=== PATIENT | male | born 1940 | race Caucasian/White ===

== ENCOUNTER → 2016-05-28 | Outpatient (CLI) | payer MEDICARE, OTHER ==
[~2016-05-28] MED LIST: FURO-125 PO; GABA600T2 PO
--- OUTSIDE RECORDS SUMMARY | 2016-05-28 09:43 | XMS REPORT | Continuity of Care Document ---
Author Author Interface Organization Interface Address Unknown Phone Unavailable Problems Problem Status Onset Date Classification Date Reported Comments Source History of polyp of colon (situation) Active Problem 09/2015 [facility]. History of radiation therapy (situation) Active Problem 07/15/2015 [facility] Hypertensive disorder, systemic arterial (disorder) Active Problem 07/15/2015 [facility]. Dyspnea (finding) Active Problem 07/15/2015 [facility]. Neoplasm of lung (disorder) Active Problem 07/15/2015 [facility] History of polyp of colon (situation) Active Problem [facility]. History of radiation therapy (situation) Active Problem 05/26/2016 [facility]. Hypertensive disorder, systemic arterial (disorder) Active Problem 05/26/2016 [facility]. Dyspnea (finding) Active Problem 05/26/2016 [facility]. Neoplasm of lung (disorder) Active Problem 05/26/2016 [facility] History of polyp of colon (situation) Active Problem [facility]. History of radiation therapy (situation) Active Problem 08/09/2014 [facility]. Hypertensive disorder, systemic arterial (disorder) Active Problem 08/09/2014 [facility]. Dyspnea (finding) Active Problem 08/09/2014 [facility] Neoplasm of lung (disorder) Active Problem 08/09/2014 [facility] History of polyp of colon (situation) Active Problem 06/2013 [facility] History of radiation therapy (situation) Active Problem 09/10/2013 [facility] Hypertensive disorder, systemic arterial (disorder) Active Problem 09/10/2013 [facility] Dyspnea (finding) Active Problem 09/10/2013 [facility] Neoplasm of lung (disorder) Active Problem 09/10/2013 [facility] Dyspnea (finding) 2015 Diagnosis 07/15/2015 [facility]. Neoplasm of lung (disorder) 07/11/2015 Diagnosis 2015 [facility] Immunization status (finding) 03/08/2016 Diagnosis 2015 [facility]. Candidiasis of mouth (disorder) 03/08/2016 Diagnosis 05/2015 [facility]. Otalgia (disorder) 2015 Diagnosis 03/12/2016 [facility] Other dyspnea and respiratory abnormality 11/15/2013 Diagnosis 11/19/2013 [facility]. Personal history of irradiation, presenting hazards to health 11/15/2013 Diagnosis 11/19/2013 [facility]. 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 statins Assertion Muscle pain (finding) Drug allergy [facility]. rofecoxib Assertion Swelling Drug allergy [facility]. celecoxib Assertion Swelling Drug allergy [facility] statins Assertion Muscle pain (finding) Drug allergy [facility]. rofecoxib Assertion Swelling Drug allergy [facility] celecoxib Assertion Swelling Drug allergy [facility] statins Assertion Muscle pain (finding) Drug allergy [facility] rofecoxib Assertion Swelling Drug allergy [facility] celecoxib drug allergy Swelling Allergy Active [facility] statins drug allergy Muscle pain (finding) Allergy Active [facility] rofecoxib drug allergy Swelling Allergy Active [facility] celecoxib Assertion Swelling Drug allergy [facility] statins Assertion Muscle pain (finding) Drug allergy [facility] rofecoxib Assertion Swelling Drug allergy [facility] Immunizations Immunization Date Given Site Status Last Updated Comments Source No data available for this section No data available for this section [facility]. influenza virus vaccine 03/08/2016 Left Deltoid influenza virus vaccine [facility] [employer] No data available for this section No data available for this section [facility] No data available for this section No data available for this section [facility] Results Order Name Results Value Reference Range Date Interpretation Comments Source Vital Signs Vital Sign Value Date Comments Source Encounters Location Location Details Encounter Type Encounter Number Reason For Visit Attending Provider ADM Date DC Date Status Source [facility] CD:[id number] Clinic ( Outpatient) [id number] Doug Kurtis 11/15/2013 Active [employer] [facility] CD:[id number] Clinic ( Outpatient) [id number] George Mcmahan 07/22/2013 Active [employer] [facility] Clinic [id number] [facility] 08/05/2014 08/06/2014 [employer] [employer] [id number] [facility] 07/11/2015 07/12/2015 [employer] Cancel/No Show [id number] 08/05/2014 08/05/2014 [facility] [id number] Tyrone Fernandodonell 03/08/2016 03/09/2016 [email or web address] [id number] Doug Kurtis 08/05/2014 08/06/2014 [employer] [id number] 07/05/2014 06/13/2014 [employer] [id number] Doug Kurtis 07/05/2014 06/13/2014 [employer] [facility] Cancel/No Show [id number] Doug Kurtis 07/08/2014 07/06/2014 [employer] [id number] Doug Kurtis 11/15/2013 11/16/2013 [employer] [id number] Doug Kurtis 11/22/2013 09/06/2013 [facility] [employer] [facility] Cancel/No Show [id number] 07/08/2014 07/06/2014 [facility] CD:[id number] Clinic ( Outpatient) [id number] Tyrone Camp 03/08/2016 Active [employer] [facility] CD:[id number] Outpatient [id number] Doug Kurtis 08/05/2014 08/05/2014 Active [employer] [facility]PM CD:[id number] Clinic ( Outpatient) [id number] Doug Kurtis 07/11/2015 Active [employer] [facility] CD:[id number] Clinic ( Outpatient) [id number] Doug Kurtis 07/10/2015 Active [employer] [facility] CD:[id number] Clinic ( Outpatient) [id number] 08/05/2014 [facility] [employer] [facility] CD:[id number] Clinic ( Outpatient) [id number] Doug Kurtis 08/05/2014 Active [employer] [facility] CD:[id number] Clinic ( Outpatient) [id number] Doug Kurtis 07/08/2014 Active [employer] [facility] CD:[id number] Clinic ( Outpatient) [id number] 07/08/2014 Active [employer] [facility] CD:[id number] Clinic ( Outpatient) [id number] 07/05/2014 [facility] [employer] [facility] CD:[id number] Clinic ( Outpatient) [id number] 07/04/2014 [facility] [employer] [facility] CD:[id number] Clinic ( Outpatient) [id number] Doug Kurtis 07/05/2014 Active [employer] [facility] CD:[id number] Clinic ( Outpatient) [id number] Doug Kurtis 07/04/2014 Active [employer] [facility] CD:[id number] Clinic ( Outpatient) [id number] Doug Kurtis 11/22/2013 Active [employer] [facility] CD:[id number] Clinic ( Outpatient) [id number] Tomás Azevedo 05/29/2016 Active [employer] [facility] CD:[id number] Clinic ( Outpatient) [id number] [facility] 2016 Active [employer] [facility] [id number] [facility] 05/22/2016 05/23/2016 [facility] Procedures Procedure Code Date Perfomer Comments Source No data available for this section [facility].
--- NOTE | 2016-05-28 13:35 | Diagnostic Imaging Report ---
EXAMINATION: PET-CT TECHNIQUE: Serum glucose level at the time of the study is: 92 mg/dL. 12.9 mCi of FDG was administered intravenously followed by obtaining PET images with corresponding noncontrast CT scan images. The CT scan was performed for anatomic correlation and attenuation correction and was not performed according to the diagnostic protocol of the areas covered. The scan was performed from the head to mid thighs. INDICATION: Non-small cell lung cancer. COMPARISON: 04/24/2016. FINDINGS: There is symmetric increased FDG uptake in the brain. There is nonspecific focal area of increased FDG uptake seen near the left pterygoid bone, could be muscle activity from the origin of the medial pterygoid muscle with no definitive soft tissue fullness or mass identified on the localizer correlating CT scan. Some increased FDG uptake projecting around the nose and the left eye is also not associated with a definitive mass and is presumably physiologic. Small focus of mild increased FDG uptake in the proximal esophagus sphincter region is not associated with a definitive mass. There is prominent area of increased FDG uptake with maximum SUV of 8.5 in left lung area of consolidation inferiorly within the left lower lobe and in the more central aspect adjacent to the ascending thoracic aorta with cavitation seen. This could be related to tumor recurrence or possibly infectious etiology. No discrete mass is identified on the localizer CT scan. Described abnormalities in the right lung on CT from 04/24/2016, demonstrate no associated significant FDG uptake and could be inflammatory etiology. In the abdomen and pelvis, there is urinary tract expected activity seen. No hypermetabolic mass is identified. IMPRESSION: There are FDG-avid areas within the inferior and central aspects of the left lower lobe consolidation with associated central area of cavitation. No discrete mass is identified. This could be related to an infection or infiltrative tumor. Based on the central extension of this abnormality, consider bronchoscopic evaluation. Dictated by: Dictated on workstation # [id number]
== END ==
LOC: RAD 09:38
PROVIDERS: ATTEND Internal Medicine Hematology & Oncology
DX: C34.82 Malignant neoplasm of overlapping sites of left bronchus and lung (principal)

== ENCOUNTER → 2016-06-18 | Outpatient (CLI) | payer MEDICARE, OTHER ==
--- OUTSIDE RECORDS SUMMARY | 2016-06-18 10:38 | XMS REPORT | Continuity of Care Document ---
Author Author Interface Organization Interface Address Unknown Phone Unavailable Problems Problem Status Onset Date Classification Date Reported Comments Source History of polyp of colon (situation) Active Problem 09/2015 [employer] History of radiation therapy (situation) Active Problem 07/15/2015 [facility]. Hypertensive disorder, systemic arterial (disorder) Active Problem 07/15/2015 [facility]. Dyspnea (finding) Active Problem 07/15/2015 [facility]. Neoplasm of lung (disorder) Active Problem 07/15/2015 [facility]. History of polyp of colon (situation) Active Problem 09/2016 [employer]. History of radiation therapy (situation) Active Problem 06/16/2016 [facility]. Hypertensive disorder, systemic arterial (disorder) Active Problem 06/16/2016 [facility]. Dyspnea (finding) Active Problem 06/16/2016 [facility]. Neoplasm of lung (disorder) Active Problem 06/16/2016 [facility]. History of polyp of colon (situation) Active Problem [employer] History of radiation therapy (situation) Active Problem 06/09/2016 [facility]. Hypertensive disorder, systemic arterial (disorder) Active Problem 06/09/2016 [facility]. Dyspnea (finding) Active Problem 06/09/2016 [facility]. Neoplasm of lung (disorder) Active Problem 06/09/2016 [facility]. History of polyp of colon (situation) Active Problem 06/2013 [facility] History of radiation therapy (situation) Active Problem 09/10/2013 [facility] Hypertensive disorder, systemic arterial (disorder) Active Problem 09/10/2013 [facility] Dyspnea (finding) Active Problem 09/10/2013 [facility] Neoplasm of lung (disorder) Active Problem 09/10/2013 [facility] Dyspnea (finding) 2015 Diagnosis 07/15/2015 [facility]. Neoplasm of lung (disorder) 07/11/2015 Diagnosis 2015 [facility]. Immunization status (finding) 03/08/2016 Diagnosis 2015 [facility]. Candidiasis of mouth (disorder) 03/08/2016 Diagnosis 05/2015 [employer] Otalgia (disorder) 2015 Diagnosis 03/12/2016 [facility]. Other dyspnea and respiratory abnormality 11/15/2013 Diagnosis 11/19/2013 [facility]. Personal history of irradiation, presenting hazards to health 11/15/2013 Diagnosis 11/19/2013 [facility]. 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 Neoplasm of lung (disorder) 06/04/2016 Diagnosis 2016 [facility]. Non-small cell lung cancer (disorder) 06/12/2016 Diagnosis 06/16/2016 [facility]. Dyspnea (finding) 2016 Diagnosis 06/16/2016 [facility]. Medications Medication Details Route Status Patient Instructions Ordering Provider Order Date Source No Known Medications No known medications Active [facility]. Allergies, Adverse Reactions, Alerts Substance Category Reaction Severity Reaction type Status Date Reported Comments Source celecoxib Assertion Swelling Drug allergy [facility]. statins Assertion Muscle pain (finding) Drug allergy [facility]. rofecoxib Assertion Swelling Drug allergy [facility]. celecoxib Assertion Swelling Drug allergy [facility]. statins Assertion Muscle pain (finding) Drug allergy [facility]. rofecoxib Assertion Swelling Drug allergy [facility]. celecoxib Assertion Swelling Drug allergy [facility]. statins Assertion Muscle pain (finding) Drug allergy [facility]. rofecoxib Assertion Swelling Drug allergy [facility]. celecoxib drug allergy Swelling Allergy Active [facility] [...] section No data available for this section [facility]. influenza virus vaccine 03/08/2016 Left Deltoid influenza virus vaccine [facility]. No data available for this section No data available for this section [employer] No data available for this section No data available for this section [facility] influenza virus vaccine 03/08/2016 Left Deltoid influenza virus [facility]. Results Order Name Results Value Reference Range Date Interpretation Comments Source Vital Signs Vital Sign Value Date Comments Source Encounters Location Location Details Encounter Type Encounter Number Reason For Visit Attending Provider ADM Date DC Date Status Source [facility]PM CD:[id number] Clinic ( Outpatient) [id number] Doug Kurtis 11/15/2013 Active Status Overload [facility] CD:[id number] Clinic ( Outpatient) [id number] George Mcmahan 07/22/2013 Active Status Overload [facility] Clinic [id number] Doug Hull 08/05/2014 08/06/2014 [facility] [id number] Doug Hull 07/11/2015 07/12/2015 [employer] [facility] Cancel/No Show [id number] 08/05/2014 08/05/2014 [employer] [id number] Tyrone Fernandodonell 03/08/2016 03/09/2016 [facility] [id number] Doug Hull 08/05/2014 08/06/2014 [facility] Clinic [id number] 07/05/2014 06/13/2014 [facility] [id number] Doug Hull 07/05/2014 06/13/2014 [employer] [employer] [facility] Cancel/No Show [id number] Doug Kurtis 07/08/2014 07/06/2014 [facility]. [facility] [id number] Doug Kurtis 11/15/2013 11/16/2013 [facility]. [facility] [id number] Doug Kurtis 11/22/2013 09/06/2013 [facility] Cancel/No Show [id number] 07/08/2014 07/06/2014 [facility]. [facility] CD:[id number] Clinic ( Outpatient) [id number] Tyrone Ibanezisma 03/08/2016 Active Status Overload [facility] CD:[id number] Outpatient [id number] Doug Kurtis 08/05/2014 08/05/2014 Active Status Overload [facility] CD:[id number] Clinic ( Outpatient) [id number] Doug Kurtis 07/11/2015 Active Status Overload [facility] CD:[id number] Clinic ( Outpatient) [id number] Doug Kurtis 07/10/2015 Active Status Overload [facility] CD:[id number] Clinic ( Outpatient) [id number] 08/05/2014 Active [employer] [facility] CD:[id number] Clinic ( Outpatient) [id number] Doug Kurtis 08/05/2014 Active Status Overload [facility] CD:[id number] Clinic ( Outpatient) [id number] Doug Kurtis 07/08/2014 Active Status Overload [facility] CD:[id number] Clinic ( Outpatient) [id number] 07/08/2014 Active [employer] [facility] CD:[id number] Clinic ( Outpatient) [id number] 07/05/2014 Active [employer] [facility] CD:[id number] Clinic ( Outpatient) [id number] 07/04/2014 Active [employer] [facility] CD:[id number] Clinic ( Outpatient) [id number] Doug Kurtis 07/05/2014 Active Status Overload [facility] CD:[id number] Clinic ( Outpatient) [id number] Doug Kurtis 07/04/2014 Active Status Overload [facility] CD:[id number] Clinic ( Outpatient) [id number] [employer] 11/22/2013 [place], [facility] CD:[id number] Clinic ( Outpatient) [id number] Tomás Roberto Carlos 05/29/2016 Active [employer] [facility] CD:[id number] Clinic ( Outpatient) [id number] [facility] 2016 [facility] [id number] [facility] 05/22/2016 05/23/2016 [facility]. [facility] CD:[id number] Clinic ( Outpatient) [id number] Tomás Roberto Carlos 06/05/2016 Active [facility] CD:[id number] Day Surgery [id number] George Mcmahan 06/05/2016 06/05/2016 Active [facility] CD:[id number] Outpatient [id number] George Mcmahan 06/04/2016 Active [facility] [facility] CD:[id number] Clinic ( Outpatient) [id number] Tomás Roberto Carlos 06/12/2016 Active [employer] [facility] [id number] Tomás Roberto Carlos 06/05/2016 06/03/2016 [employer] [facility] Pavilion [id number] George Mcmahan 06/04/2016 06/06/2016 [employer] [facility]. [facility]. Outpatient Day Surgery [id number] George Mcmahan 06/05/2016 06/06/2016 [facility]. [facility] [id number] Tomás Juneau 06/12/2016 06/13/2016 [facility]. Procedures Procedure Code Date Perfomer Comments Source No data available for this section [facility]. bronchoscopy 06/05/2016 [facility]. Endobronchial Ultrasound System Bronchoscoy With Transbronchial Needle Biopsies 06/05/2016 [facility].
== END ==
LOC: FS 10:31
PROVIDERS: ATTEND Internal Medicine Hematology & Oncology
DX: C34.32 Malignant neoplasm of lower lobe, left bronchus or lung (principal); G62.9 Polyneuropathy, unspecified; Z92.21 Personal history of antineoplastic chemotherapy; Z92.3 Personal history of irradiation; Z79.899 Other long term (current) drug therapy
CPT/HCPCS: 99213

== ENCOUNTER → 2016-06-20 | Day surgery (SDC) | payer MEDICARE, OTHER ==
[~2016-06-20] VITALS: Ht 193 cm; Wt 101.6 kg
[2016-06-20] VITALS (10 sets, daily range): BP systolic 116–138; BP diastolic 71–88
[~2016-06-20] MED LIST changes: +HYDROcodone/APAP 5 MG/325 MG (LORTAB) TAB PO PRN; +LIDOCAINE 1% INJ 20 ML (XYLOCAINE) VIAL INJ ONE; +LIDOCAINE 1% INJ 20 ML (XYLOCAINE) VIAL ONE; +fentaNYL INJECTION 100 MCG/2 ML AMP IVP PRN; +fentaNYL INJECTION 100 MCG/2 ML AMP ONE
[2016-06-20 09:05] LABS: MEAN PLATELET VOLUME 9.4 FL (7.4-10.4); RED BLOOD COUNT 4.5 10^6/uL (4.35-5.85); RED CELL DISTRIBUTION WIDTH 14.9 % (10.0-14.5); WHITE BLOOD COUNT 7.6 10^3/uL (4.3-11.0)
[2016-06-20 09:14] LABS: INR 1.1 (0.8-1.4); PROTHROMBIN TIME PATIENT 13.7 SEC (12.2-14.7)
--- NOTE | 2016-06-20 11:15 | Discharge Instructions ---
Discharge Instructions Home Medicaitons Changes Hold any current blood thinner home medications for [24 hours]. TRISTON MANUEL MD Jun 20, 2016 11:15
--- NOTE | 2016-06-20 11:26 | Diagnostic Imaging Report ---
EXAMINATION: CT-guided biopsy-lung. INDICATION: Left lung biopsy targeting a hypermetabolic area seen on PET from 05/28/16. Current history and physical and other medical records are reviewed prior to the procedure. CONSENT: Informed consent was obtained from the patient. The risks, benefits, potential complications and alternatives were reviewed and all questions answered to the patient's satisfaction. The patient's vital signs, cardiac rhythm, and pulse oximetry were observed throughout the procedure by qualified nursing personnel for 30 minutes. Sedation/medications: Fentanyl 25 mg IV. FINDINGS: Dense consolidation in the right the lungs which is also atelectatic seen. The right lower lung is targeted as this area appears to have prominent the increased FDG uptake of recent PET. PROCEDURE: After maximal sterile barrier technique preparation and draping, 1% lidocaine was utilized for local anesthesia. With the patient in prone position, and via posterior intercostal approach, a 17-gauge guide needle is introduced into the right lung mass under CT scan guidance. After confirming adequate positioning with saved CT images, multiple 18 gauge core biopsy specimens were obtained. Autologous blood patch 3 cc was injected in the tract as the guide needle was removed The patient tolerated the procedure well with no immediate complications. IMPRESSION: Successful CT-guided biopsy of right lung mass. Dictated by: Dictated on workstation # [id number]
--- NOTE | 2016-06-20 12:58 | Diagnostic Imaging Report ---
Portable upright expiratory view of the chest. Indication left lung mass status post CT biopsy Units: There is complete opacification of the left hemithorax with underlying mass and atelectasis. The cardiac contour on the right side appears normal. The heart and mediastinum are shifted to the left with hyperexpansion of the right lung which demonstrate no focal abnormality. No pneumothorax. Impression: Complete opacification with underlying mass and atelectasis in the left the lung seen. Dictated by: Dictated on workstation # [id number]
== END | disposition home or self-care (01) ==
LOC: RAD 08:20
PROVIDERS: ATTEND Internal Medicine Hematology & Oncology
DX: C34.82 Malignant neoplasm of overlapping sites of left bronchus and lung (principal)
CPT/HCPCS: 36415; 71035; 77012; 85027; 85610; 85730; 88305; 88341; 88342; 88344; 88381

== ENCOUNTER 2016-08-07 09:06 | Outpatient (RCR) | payer MEDICARE, OTHER ==
--- OUTSIDE RECORDS SUMMARY | 2016-07-10 09:19 | XMS REPORT | Continuity of Care Document ---
Author Author Interface Organization Interface Address Unknown Phone Unavailable Problems Problem Status Onset Date Classification Date Reported Comments Source History of polyp of colon (situation) Active Problem 09/2015 [employer]. History of radiation therapy (situation) Active Problem 07/15/2015 [employer]. Hypertensive disorder, systemic arterial (disorder) Active Problem 07/15/2015 [employer]. Dyspnea (finding) Active Problem 07/15/2015 [employer]. Neoplasm of lung (disorder) Active Problem 07/15/2015 [employer]. History of polyp of colon (situation) Active Problem [employer]. History of radiation therapy (situation) Active Problem 06/30/2016 [employer]. Hypertensive disorder, systemic arterial (disorder) Active Problem 06/30/2016 [employer]. Dyspnea (finding) Active Problem 06/30/2016 [employer]. Neoplasm of lung (disorder) Active Problem 06/30/2016 [employer]. History of polyp of colon (situation) Active Problem [employer]. History of radiation therapy (situation) Active Problem 07/01/2016 [employer]. Hypertensive disorder, systemic arterial (disorder) Active Problem 07/01/2016 [employer]. Dyspnea (finding) Active Problem 07/01/2016 [employer]. Neoplasm of lung (disorder) Active Problem 07/01/2016 [employer]. History of polyp of colon (situation) Active Problem 06/2013 [facility] History of radiation therapy (situation) Active Problem 09/10/2013 [facility] Hypertensive disorder, systemic arterial (disorder) Active Problem 09/10/2013 [facility] Dyspnea (finding) Active Problem 09/10/2013 [facility] Neoplasm of lung (disorder) Active Problem 09/10/2013 [facility] Dyspnea (finding) 2015 Diagnosis 07/15/2015 [employer]. Neoplasm of lung (disorder) 07/11/2015 Diagnosis 2015 [employer]. Immunization status (finding) 03/08/2016 Diagnosis 2015 [employer]. Candidiasis of mouth (disorder) 03/08/2016 Diagnosis 05/2015 [employer]. Otalgia (disorder) 2015 Diagnosis 03/12/2016 [employer]. Other dyspnea and respiratory abnormality 11/15/2013 Diagnosis 11/19/2013 [employer]. Personal history of irradiation, presenting hazards to health 11/15/2013 Diagnosis 11/19/2013 [employer]. 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 Neoplasm of lung (disorder) 06/04/2016 Diagnosis 2016 [employer]. Non-small cell lung cancer (disorder) 06/12/2016 Diagnosis 06/16/2016 [employer]. Dyspnea (finding) 2016 Diagnosis 06/16/2016 [employer]. Medications Medication Details Route Status Patient Instructions Ordering Provider Order Date Source No Known Medications No known medications Active [employer]. Allergies, Adverse Reactions, Alerts Substance Category Reaction Severity Reaction type Status Date Reported Comments Source celecoxib Assertion Swelling Drug allergy [employer]. statins Assertion Muscle pain (finding) Drug allergy [employer]. rofecoxib Assertion Swelling Drug allergy [employer]. celecoxib Assertion Swelling Drug allergy [employer]. statins Assertion Muscle pain (finding) Propensity to adverse reactions to drug [employer]. rofecoxib Assertion Swelling Drug allergy [employer]. celecoxib Assertion Swelling Drug allergy [employer]. statins Assertion Muscle pain (finding) Propensity to adverse reactions to drug [employer]. rofecoxib Assertion Swelling Drug allergy [employer]. celecoxib drug allergy Swelling Allergy Active [facility] [...] section No data available for this section [employer]. influenza virus vaccine 03/08/2016 Left [facility] [employer]. No data available for this section No data available for this section [employer] No data available for this section No data available for this section [facility] influenza virus vaccine 03/08/2016 Left Deltoid influenza virus vaccine Sn[employer]shot [employer]. Results Order Name Results Value Reference Range Date Interpretation Comments Source Vital Signs Vital Sign Value Date Comments Source Encounters Location Location Details Encounter Type Encounter Number Reason For Visit Attending Provider ADM Date DC Date Status Source [facility] CD:[id number] Clinic ( Outpatient) [id number] Doug Kurtis 11/15/2013 Active [employer] [facility] CD:[id number] Clinic ( Outpatient) [id number] George Mcmahan 07/22/2013 Active [employer] [facility] [id number] Doug Hull 08/05/2014 08/06/2014 [employer] [id number] Doug Hull 07/11/2015 07/12/2015 [employer] Cancel/No Show [id number] 08/05/2014 08/05/2014 [employer]. [facility] [id number] Tyrone Camp 03/08/2016 03/09/2016 [employer] Outpatient [id number] Doug Hull 08/05/2014 08/06/2014 [employer] [id number] 07/05/2014 06/13/2014 [facility] [id number] Doug Hull 07/05/2014 06/13/2014 [employer] Cancel/No Show [id number] Doug Kurtis 07/08/2014 07/06/2014 [employer]. [facility] [id number] Doug Kurtis 11/15/2013 11/16/2013 [employer] [id number] Doug Kurtis 11/22/2013 09/06/2013 [facility] Cancel/No Show [id number] 07/08/2014 07/06/2014 [employer]. [facility] CD:[id number] Clinic ( Outpatient) [id number] Tyrone Krdonell 03/08/2016 Active [employer] [facility] CD:[id number] Outpatient [id number] Doug Kurtis 08/05/2014 08/05/2014 Active [employer] [facility] CD:[id number] Clinic ( Outpatient) [id number] Doug Kurtis 07/11/2015 Active [employer] [facility] CD:[id number] Clinic ( Outpatient) [id number] Doug Kurtis 07/10/2015 Active [employer] [facility] CD:[id number] Clinic ( Outpatient) [id number] 08/05/2014 Active [employer] [facility] CD:[id number] Clinic ( Outpatient) [id number] Doug Kurtis 08/05/2014 Active [employer] [facility] CD:[id number] Clinic ( Outpatient) [id number] Doug Kurtis 07/08/2014 Active [employer] [facility] CD:[id number] Clinic ( Outpatient) [id number] 07/08/2014 Active [employer] [facility] CD:[id number] Clinic ( Outpatient) [id number] 07/05/2014 Active [employer] [facility] CD:[id number] Clinic ( Outpatient) [id number] 07/04/2014 Active [employer] [facility] CD:[id number] Clinic ( Outpatient) [id number] Doug Kurtis 07/05/2014 Active [employer] [facility] CD:[id number] Clinic ( Outpatient) [id number] Doug Kurtis 07/04/2014 Active [employer] [facility] CD:[id number] Clinic ( Outpatient) [id number] Doug Lopezlor 11/22/2013 Active [employer] [facility] CD:[id number] Clinic ( Outpatient) [id number] Tomás Roberto Carlos 05/29/2016 Active [employer] [facility] CD:[id number] Clinic ( Outpatient) [id number] [facility] [address] [facility] [id number] [facility] 05/22/2016 05/23/[address] [employer] [facility] CD:[id number] Clinic ( Outpatient) [id number] Tomás Roberto Carlos 06/05/2016 Active [employer] [facility] CD:[id number] Day Surgery [id number] George Mcmahan 06/05/2016 06/05/2016 Active [employer] [facility] CD:[id number] Outpatient [id number] George Mcmahan 06/04/2016 Active [employer] [facility] CD:[id number] Clinic ( Outpatient) [id number] Tomás Azevedo 06/12/[address] [facility] [id number] Tomás Roberto Carlos 06/05/2016 06/03/2016 [employer]. [employer] [employer] [id number] George Mcmahan 06/04/2016 06/06/2016 [employer]. [employer] Outpatient Day Surgery [id number] George Mcmahan 06/05/2016 06/06/2016 [facility] [id number] Tomás Roberto Carlos 06/12/2016 06/13/[address] [employer] [facility] CD:[id number] Clinic ( Outpatient) [id number] Tomás Azevedo 06/26/2016 Active [employer] [facility] CD:[id number] Clinic ( Outpatient) [id number] Doug Hull 07/25/2016 Active [employer] [facility] CD:[id number] Emergency [id number] Jay Landaverde 06/26/2016 06/26/2016 Active [employer] Emergency [id number] Tomás Azevedo 06/26/2016 06/28/2016 [employer] [id number] Tomás Azevedo 06/26/2016 06/27/2016 [employer] Procedures Procedure Code Date Perfomer Comments Source No data available for this section [employer]. bronchoscopy 06/05/2016 [employer], [facility] Endobronchial Ultrasound System Bronchoscoy With Transbronchial Needle Biopsies 06/05/2016 [employer] [facility].
[2016-07-10 11:04] LABS: BASOPHILS % (AUTO) 0 % (0-10); EOSINOPHILS # (AUTO) 0.3 10^3/uL (0.0-0.3); EOSINOPHILS % (AUTO) 3 % (0-10); LYMPHOCYTES % (AUTO) 11 % (12-44); MEAN CORPUSCULAR HEMOGLOBIN 27 PG (25-34); MEAN CORPUSCULAR HGB CONC 32 G/DL (32-36); MEAN CORPUSCULAR VOLUME 83 FL (80-99); MONOCYTES # (AUTO) 0.9 X 10^3 (0.0-1.0); MONOCYTES % (AUTO) 10 % (0-12); NEUTROPHILS # (AUTO) 7.4 X 10^3 (1.8-7.8); NEUTROPHILS % (AUTO) 76 % (42-75); PLATELET COUNT 420 10^3/uL (130-400); RED BLOOD COUNT 4.22 10^6/uL (4.35-5.85); RED CELL DISTRIBUTION WIDTH 15.7 % (10.0-14.5); WHITE BLOOD COUNT 9.6 10^3/uL (4.3-11.0)
[2016-07-10 11:35] LABS: ALANINE AMINOTRANSFERASE 24 U/L (0-55); ALBUMIN 3.1 G/DL (3.2-4.5); ANION GAP 10 MMOL/L (5-14); ASPARTATE AMINO TRANSFERASE 19 U/L (5-34); BILIRUBIN,TOTAL 0.4 MG/DL (0.1-1.0); BLOOD UREA NITROGEN 16 MG/DL (7-18); BUN/CREATININE RATIO 20; CALCIUM 9.3 MG/DL (8.5-10.1); CARBON DIOXIDE 31 MMOL/L (21-32); CHLORIDE 98 MMOL/L (98-107); CREATININE SERUM 0.79 MG/DL (0.60-1.30); GFR ESTIMATED > 60; GLUCOSE 103 MG/DL (70-105); POTASSIUM 4.7 MMOL/L (3.6-5.0); SODIUM 139 MMOL/L (135-145); TOTAL PROTEIN 6.9 G/DL (6.4-8.2)
[2016-07-17 10:16] LABS: BASOPHILS % (AUTO) 0 % (0-10); EOSINOPHILS % (AUTO) 0 % (0-10); LYMPHOCYTES # (AUTO) 0.7 X 10^3 (1.0-4.0); LYMPHOCYTES % (AUTO) 6 % (12-44); MEAN CORPUSCULAR HEMOGLOBIN 26 PG (25-34); MEAN CORPUSCULAR HGB CONC 31 G/DL (32-36); MEAN CORPUSCULAR VOLUME 82 FL (80-99); MEAN PLATELET VOLUME 9.5 FL (7.4-10.4); MONOCYTES # (AUTO) 0.8 X 10^3 (0.0-1.0); MONOCYTES % (AUTO) 7 % (0-12); NEUTROPHILS # (AUTO) 11.3 X 10^3 (1.8-7.8); NEUTROPHILS % (AUTO) 88 % (42-75); PLATELET COUNT 442 10^3/uL (130-400); RED BLOOD COUNT 4.62 10^6/uL (4.35-5.85); RED CELL DISTRIBUTION WIDTH 15.9 % (10.0-14.5); WHITE BLOOD COUNT 12.8 10^3/uL (4.3-11.0)
[2016-07-17 10:41] LABS: ALANINE AMINOTRANSFERASE 30 U/L (0-55); ALBUMIN 3.3 G/DL (3.2-4.5); ANION GAP 11 MMOL/L (5-14); ASPARTATE AMINO TRANSFERASE 19 U/L (5-34); BILIRUBIN,TOTAL 0.4 MG/DL (0.1-1.0); BLOOD UREA NITROGEN 20 MG/DL (7-18); BUN/CREATININE RATIO 25; CALCIUM 9.8 MG/DL (8.5-10.1); CARBON DIOXIDE 29 MMOL/L (21-32); CHLORIDE 100 MMOL/L (98-107); CREATININE SERUM 0.81 MG/DL (0.60-1.30); GFR ESTIMATED > 60; GLUCOSE 112 MG/DL (70-105); POTASSIUM 4.4 MMOL/L (3.6-5.0); SODIUM 140 MMOL/L (135-145); TOTAL PROTEIN 7.9 G/DL (6.4-8.2)
[~2016-08-07] VITALS: Ht 188 cm; Wt 97.5 kg
[~2016-08-07 09:06] MED LIST changes: +CYANOCOBALAMIN INJ 1000 MCG/ML (CANCER CENTER) ONE; -HYDROcodone/APAP 5 MG/325 MG (LORTAB) TAB PO PRN; -LIDOCAINE 1% INJ 20 ML (XYLOCAINE) VIAL INJ ONE; -LIDOCAINE 1% INJ 20 ML (XYLOCAINE) VIAL ONE; +NS IV 500 ML (CANCER CENTER) IV SCH; +PALONOSETRON 0.25 MG, DEXAMETHASONE 10 MG/NS 50 ML IVPB IV PRN; +PEMETREXED DISODIUM 1,000 MG in NS (IVPB) CANCER CENTER 100 ML IV SCH; -fentaNYL INJECTION 100 MCG/2 ML AMP IVP PRN; -fentaNYL INJECTION 100 MCG/2 ML AMP ONE
[2016-08-07 09:42] LABS: BASOPHILS % (AUTO) 0 % (0-10); EOSINOPHILS % (AUTO) 0 % (0-10); LYMPHOCYTES # (AUTO) 0.4 X 10^3 (1.0-4.0); LYMPHOCYTES % (AUTO) 2 % (12-44); MEAN CORPUSCULAR HEMOGLOBIN 26 PG (25-34); MEAN CORPUSCULAR HGB CONC 32 G/DL (32-36); MEAN CORPUSCULAR VOLUME 82 FL (80-99); MEAN PLATELET VOLUME 9.1 FL (7.4-10.4); MONOCYTES # (AUTO) 1.4 X 10^3 (0.0-1.0); MONOCYTES % (AUTO) 7 % (0-12); NEUTROPHILS # (AUTO) 16.9 X 10^3 (1.8-7.8); NEUTROPHILS % (AUTO) 91 % (42-75); PLATELET COUNT 838 10^3/uL (130-400); RED BLOOD COUNT 4.24 10^6/uL (4.35-5.85); RED CELL DISTRIBUTION WIDTH 17.7 % (10.0-14.5); WHITE BLOOD COUNT 18.7 10^3/uL (4.3-11.0)
[2016-08-07 10:13] LABS: ALANINE AMINOTRANSFERASE 23 U/L (0-55); ALBUMIN 2.9 G/DL (3.2-4.5); ANION GAP 9 MMOL/L (5-14); ASPARTATE AMINO TRANSFERASE 15 U/L (5-34); BILIRUBIN,TOTAL 0.4 MG/DL (0.1-1.0); BLOOD UREA NITROGEN 21 MG/DL (7-18); BUN/CREATININE RATIO 27; CALCIUM 9.4 MG/DL (8.5-10.1); CARBON DIOXIDE 31 MMOL/L (21-32); CHLORIDE 100 MMOL/L (98-107); CREATININE SERUM 0.78 MG/DL (0.60-1.30); GFR ESTIMATED > 60; GLUCOSE 160 MG/DL (70-105); MAGNESIUM 1.9 MG/DL (1.8-2.4); POTASSIUM 4.1 MMOL/L (3.6-5.0); SODIUM 140 MMOL/L (135-145); TOTAL PROTEIN 7.3 G/DL (6.4-8.2)
[2016-08-07] MEDS ORDERED: ONDANSETRON 16 MG, DEXAMETHASONE 10 MG/NS 50 ML IVPB IV SCH ×3 (11:00)
[2016-08-07] MEDS ORDERED: GEMCITABINE HCL (GENERIC) 1,000 MG, GEMCITABINE HCL (GENERIC) 700 MG in NS (IVPB) CANCE... IV SCH (11:15)
== END 2016-10-08 | disposition home or self-care (01) ==
LOC: ONC 09:06
PROVIDERS: ATTEND Internal Medicine Hematology & Oncology
DX: Z51.11 Encounter for antineoplastic chemotherapy (principal); C34.32 Malignant neoplasm of lower lobe, left bronchus or lung; G62.9 Polyneuropathy, unspecified; Z92.21 Personal history of antineoplastic chemotherapy; Z92.3 Personal history of irradiation; Z79.899 Other long term (current) drug therapy
CPT/HCPCS: 36415; 80053; 83735; 85025; 96372; 96375; 96409; 96413; 99213